=== PATIENT | male | born 1980 | race Caucasian/White ===

== ENCOUNTER → 2017-12-19 | Outpatient (CLI) | payer OTHER ==
[~2017-12-19] MED LIST: MINO50TA7 PO; OMEP-125 PO
[2017-12-19 10:21] LABS: PLATELET COUNT, AUTOMATED 232 K/uL (150-450)
== END ==
LOC: LAB 09:56
PROVIDERS: ATTEND Internal Medicine
DX: R53.83 Other fatigue (principal); E78.5 Hyperlipidemia, unspecified; R03.0 Elevated blood-pressure reading, without diagnosis of hypertension
CPT/HCPCS: 36415; 82040; 82247; 82310; 82374; 82435; 82465; 82565; 82947; 83718; 84075; 84132; 84155; 84295; 84402; 84403; 84443; 84450; 84460; 84478; 84520; 85025

== ENCOUNTER → 2017-12-26 | Outpatient (CLI) | payer OTHER ==
--- NOTE | 2017-12-26 11:20 | RADIOLOGY IMAGING REPORT ---
FACILITY: [facility] [place] PATIENT NAME: Beto Benjamin : 1980 MR: [id number] V: [id number] EXAM DATE: ORDERING PHYSICIAN: HUEY WILSON TECHNOLOGIST: Location: Patient: Beto Benjamin : 1980 Visit/Account:[id number] Date of Sevice: 12/26/2017 EXAMINATION: Abdominal ultrasound complete HISTORY: Hyperlipidemia, elevated liver function tests COMPARISON: None. FINDINGS: Gallbladder: No stones, wall thickening, pericholecystic fluid or sonographic Zarate sign. Liver: Negative. Common duct: Normal measuring 2.7 mm. Pancreas: Partially obscured by bowel gas Spleen: Normal in size and echogenicity measuring 9.2 cm in length. Kidneys: Normal in size and echogenicity, the right measures 12.4 cm in length, and the left .6 cm. No hydronephrosis. There is a slightly lobular contour to both kidneys although discrete mass is no t demonstrated Upper abdominal aorta and IVC: Negative. Ascites: None. IMPRESSION: Unremarkable abdomen ultrasound other than limited evaluation of pancreas due to overlying bowel gas Report Dictated By: Silvia Fry MD at 12/26/2017 11:14 AM Report E-Signed By: Silvia Fry MD at 12/26/2017 11:16 AM WSN:[email or web address]
== END ==
LOC: US 01:49
PROVIDERS: ATTEND Internal Medicine
DX: E78.5 Hyperlipidemia, unspecified (principal); R79.89 Other specified abnormal findings of blood chemistry
CPT/HCPCS: 76700

== ENCOUNTER → 2018-03-04 | Outpatient (CLI) | payer OTHER ==
[~2018-03-04] MED LIST changes: +FENO145T36 PO
[2018-03-04 11:22] LABS: LDL CHOLESTEROL 103 mg/dl
== END ==
LOC: LAB 10:52
PROVIDERS: ATTEND Internal Medicine
DX: E78.5 Hyperlipidemia, unspecified (principal); R79.89 Other specified abnormal findings of blood chemistry
CPT/HCPCS: 36415; 80074; 82040; 82247; 82310; 82374; 82435; 82465; 82565; 82947; 83718; 84075; 84132; 84155; 84295; 84450; 84460; 84478; 84520

== ENCOUNTER → 2018-08-27 | Outpatient (CLI) | payer OTHER ==
[~2018-08-27] MED LIST changes: +FEN200PT PO; +ROSU20TA23 PO
[2018-08-27 13:26] LABS: LDL CHOLESTEROL 143 mg/dl
== END ==
LOC: LAB 11:00
PROVIDERS: ATTEND Internal Medicine
DX: E78.5 Hyperlipidemia, unspecified (principal); R94.5 Abnormal results of liver function studies
CPT/HCPCS: 36415; 82040; 82247; 82310; 82374; 82435; 82465; 82565; 82947; 83718; 84075; 84132; 84155; 84295; 84443; 84450; 84460; 84478; 84520

== ENCOUNTER → 2019-03-31 | Outpatient (CLI) | payer OTHER ==
[~2019-03-31] MED LIST changes: -OMEP-125 PO; +OMEP-126 PO; -ROSU20TA23 PO; +ROSU20TA24 PO
[2019-03-31 10:50] LABS: LDL CHOLESTEROL 54 mg/dl
== END ==
LOC: LAB 10:16
PROVIDERS: ATTEND Internal Medicine
DX: R79.89 Other specified abnormal findings of blood chemistry (principal); E78.2 Mixed hyperlipidemia
CPT/HCPCS: 36415; 82040; 82247; 82310; 82374; 82435; 82465; 82565; 82947; 83718; 84075; 84132; 84155; 84295; 84450; 84460; 84478; 84520